=== PATIENT | female | born 1995 | race Caucasian/White ===

== ENCOUNTER → 2016-11-10 | Outpatient (REF) | payer OTHER | LOC: M SFHCPLAZ 10:29 | PROVIDERS: ATTEND Nurse Practitioner Family | DX: N30.20 Other chronic cystitis without hematuria (principal) | CPT/HCPCS: 87491; 87591; G0123 ==

== ENCOUNTER → 2018-02-14 | Outpatient (REF) | payer OTHER | LOC: M SFHCCLAY 08:10 | DX: Z12.4 Encounter for screening for malignant neoplasm of cervix (principal); Z01.419 Encounter for gynecological examination (general) (routine) without abnormal findings; R87.610 Atypical squamous cells of undetermined significance on cytologic smear of cervix (ASC-US) | CPT/HCPCS: 88142 ==

== ENCOUNTER → 2018-04-25 | Outpatient (REF) | payer OTHER | LOC: M SFHCLERA 09:05 | DX: D22.71 Melanocytic nevi of right lower limb, including hip (principal) ==

== ENCOUNTER 2018-09-13 06:44 | Day surgery (SDC) | payer OTHER ==
[~2018-09-13] VITALS: Ht 157.5 cm; Wt 26.3 kg
[~2018-09-13 06:44] MED LIST: NS 1,000 ML IV ONE
[2018-09-13] MEDS ORDERED: SIMETHICONE 40MG/0.6ML DROPS 30ML As Ordered ONE (06:54)
[2018-09-13] MEDS ORDERED: LIDOCAINE 2% INJ 100 MG/5 ML SDV (FOR ANES.) As Ordered ONE (07:01)
[2018-09-13] MEDS ORDERED: PROPOFOL 200 MG/20 ML VIAL As Ordered ONE (07:01)
[2018-09-13] MEDS ORDERED: fentaNYL 100 MCG/2 ML INJECTION (J3010) As Ordered ONE (07:42)
--- NOTE | 2018-09-13 07:58 | ROOR ---
Patient Name: Glory Cain Procedure Date: 09/13/2018 7:31 AM Date of : 1995 Age: 23 Room: [facility] Gender: Female Note Status: Finalized Procedure: Colonoscopy Indications: Rectal pain. Anal fissure-r/o crohns Providers: Ty JAIN MD Referring MD: Aranza Pérez NP Requesting Provider: Medicines: Monitored Anesthesia Care Complications: No immediate complications. Procedure: Pre-Anesthesia Assessment: - The heart rate, respiratory rate, oxygen saturations, blood pressure, adequacy of pulmonary ventilation, and response to care were monitored throughout the procedure. The Colonoscope was introduced through the anus and advanced to 8 cm into the ileum. The colonoscopy was performed without difficulty. The patient tolerated the procedure well. The quality of the bowel preparation was good. Findings: An anal fissure was found on perianal exam. The colon (entire examined portion) appeared normal. The terminal ileum appeared normal. Impression: - Anal fissure found on perianal exam (@ 4 O'Clock). - The entire examined colon is normal. - The examined portion of the ileum was normal. - No specimens collected. Recommendation: - Miralax 1 capful (17 grams) in 8 ounces of water PO BID. - Use fiber, for example Citrucel, Fibercon, Konsyl or Metamucil. - Recommend referral to Colon/Rectal surgery for further management of chronic anal fissure. Ty Jain MD Ty JAIN MD 09/13/2018 7:57:57 AM This report has been signed electronically. Number of Addenda: 0 Note Initiated On: 09/13/2018 7:31 AM Estimated Blood Loss: Estimated blood loss: none.
[2018-09-13 08:15] VITALS: BP 117/68
== END 2018-09-13 08:35 | disposition home or self-care (01) ==
LOC: M OPP 06:44
PROVIDERS: ATTEND Internal Medicine Gastroenterology
DX: K62.89 Other specified diseases of anus and rectum (principal); K60.2 Anal fissure, unspecified; Z88.1 Allergy status to other antibiotic agents; Z82.3 Family history of stroke; Z80.41 Family history of malignant neoplasm of ovary; Z80.8 Family history of malignant neoplasm of other organs or systems
CPT/HCPCS: 45378; J3010

== ENCOUNTER → 2019-03-02 | Outpatient (REF) | payer OTHER ==
[2019-03-08 14:31] LABS: HPV HYBRID CAPTURE II Negative (Negative)
== END ==
LOC: M SFHCCLAY 12:19
PROVIDERS: ATTEND Nurse Practitioner Family
DX: Z12.4 Encounter for screening for malignant neoplasm of cervix (principal)

== ENCOUNTER → 2019-04-06 | Outpatient (CLI) | payer OTHER ==
[2019-04-06 13:43] LABS: BASO # 0.1 10^3/uL (0.0-0.2); BASO % 0.8 % (0.0-1.0); EOS # 0.1 10^3/uL (0.0-0.5); EOS % 1.4 % (0.0-3.0); HEMATOCRIT 41.5 % (36.0-47.0); HEMOGLOBIN 14.4 g/dl (12.0-15.5); LYMPH # 1.7 10^3/uL (1.5-5.0); LYMPH % 22.1 % (24.0-44.0); MEAN CORPUSCULAR HEMOGLOBIN 30.6 pg (27.0-33.0); MEAN CORPUSCULAR HGB CONC 34.7 g/dl (32.0-36.5); MEAN CORPUSCULAR VOLUME 88.3 fl (80.0-96.0); MONO # 0.5 10^3/uL (0.0-0.8); NEUTROPHILS # 5.4 10^3/uL (1.5-8.5); NEUTROPHILS % 69.3 % (36.0-66.0); PLATELET COUNT, AUTOMATED 266 10^3/uL (150-450); WHITE BLOOD COUNT 7.8 10^3/uL (4.0-10.0)
[2019-04-06 15:36] LABS: CHLAMYDIA DNA AMPLIFICATION NEGATIVE (NEGATIVE); GC DNA AMPLIFICATION NEGATIVE (NEGATIVE)
[2019-04-07 11:53] LABS: HEPATITIS C VIRUS ABY INDEX 0.2 INDEX (<0.8); HIV 1&2 SCREEN CENTAUR NEGATIVE (NEGATIVE); RUBELLA IgG QUALITATIVE IMMUNE (IMMUNE)
== END ==
LOC: M SMT 08:55
PROVIDERS: ATTEND Advanced Practice Midwife
DX: Z34.01 Encounter for supervision of normal first pregnancy, first trimester (principal); Z36.89 Encounter for other specified antenatal screening; Z3A.09 9 weeks gestation of pregnancy

== ENCOUNTER → 2019-06-12 | Outpatient (CLI) | payer OTHER | LOC: M PLALAB 10:09 | PROVIDERS: ATTEND Advanced Practice Midwife | DX: Z34.82 Encounter for supervision of other normal pregnancy, second trimester (principal); Z36.89 Encounter for other specified antenatal screening ==

== ENCOUNTER → 2019-06-12 | Outpatient (CLI) | payer OTHER ==
--- NOTE | 2019-06-12 10:21 | REP ---
Clinical: Anatomical evaluation. Comparison: None . Findings: Examination demonstrates a single live intrauterine in variable presentation. motion is identified by technologist. Placenta is noted posterior and grade zero without evidence for placenta previa or abruption. Amniotic fluid volume is normal. Cervix measures 4.0 cm in length and appears closed. No evidence for nuchal cord. Gestational age by LMP 19 weeks 2 days with PHYLLIS 11/04/2019 . Gestational age by current measurements 18 weeks 2 days with PHYLLIS 11/11/2019 . FHR equals 157 beats per minute. BPD 4.0 cm 18 weeks 2 days HC 14.8 cm 17 weeks 6 days AC 13.0 cm 18 weeks 4 days FL 2.7 cm 18 weeks 1 day HL 2.6 cm 18 weeks 2 days HC/AC ratio 1.14 Estimated weight 234 grams ( 14th percentile). Anatomical assessment demonstrates normal structures including cranium, cavum, cerebellum/posterior fossa, facial profile, lungs, cardiac ventricular outflow tracts, diaphragm, stomach, cord insertion/three-vessel cord, kidneys/bladder, spine, and extremities. Small right choroid plexus cyst. Limited evaluation of the facial features and four-chamber heart. Impression: 1. Single live intrauterine in variable presentation demonstrating appropriate interval growth. 2. Anatomical limitations and findings as noted above warrant reevaluation and follow-up. Electronically Signed by Jair Walker MD 06/12/2019 10:14 A
== END ==
LOC: M RAD 09:03
PROVIDERS: ATTEND Advanced Practice Midwife
DX: O99.89 Other specified diseases and conditions complicating pregnancy, childbirth and the puerperium (principal); Z3A.19 19 weeks gestation of pregnancy; O36.92X0 Maternal care for fetal problem, unspecified, second trimester, not applicable or unspecified; O32.8XX0 Maternal care for other malpresentation of fetus, not applicable or unspecified

== ENCOUNTER → 2019-07-06 | Outpatient (CLI) | payer OTHER ==
--- NOTE | 2019-07-06 12:09 | REP ---
Clinical: Anatomical evaluation. Comparison: 06/12/2019 . Findings: Examination demonstrates a single live intrauterine in breech presentation. motion is identified by technologist. Placenta is noted posterior/fundal and grade zero without evidence for placenta previa or abruption. Amniotic fluid volume is normal. Cervix measures 3.2 cm in length and appears closed. No evidence for nuchal cord. Gestational age by LMP 22 weeks 2 days with PHYLLIS 11/07/2019 . Gestational age by first ultrasound 22 weeks 5 days with PHYLLIS 11/04/2019 . FHR equals 141 beats per minute. Estimated weight 431 grams (11th percentile). Anatomical assessment demonstrates normal structures including cranium, cavum, cerebellum/posterior fossa, facial features, lungs, four-chamber heart/ventricular outflow tracts, diaphragm, stomach, cord insertion/three-vessel cord, kidneys/bladder, spine, and extremities. 2 mm right choroid plexus cyst noted. Impression: 1. Single live intrauterine in breech presentation demonstrating appropriate interval growth compared to first ultrasound. 2. Right choroid plexus cyst. 3. Remainder of the anatomical assessment is complete and normal. Electronically Signed by Jair Walker MD 07/06/2019 10:49 A
== END ==
LOC: M LRY 08:14
PROVIDERS: ATTEND Advanced Practice Midwife
DX: Z34.02 Encounter for supervision of normal first pregnancy, second trimester (principal); Z3A.22 22 weeks gestation of pregnancy

== ENCOUNTER → 2019-08-04 | Outpatient (CLI) | payer OTHER, BC ==
--- NOTE | 2019-08-04 12:55 | REP ---
OBSTETRIC SONOGRAPHY: HISTORY: Supervision of . Followup. FINDINGS: Scanning through the gravid uterus demonstrates a viable single intrauterine gestation in a cephalic lie. motion is observed, and heart rate is recorded at 150 beats per minute. A posterior grade 0 placenta is seen without evidence of previa or abruption. Amniotic fluid is subjectively normal. Closed cervical length measured transabdominally is 3.9 cm. No extrauterine abnormalities observed. There has been appropriate interval growth. The following anatomic structures are identified today and felt to be unremarkable: cranium, choroid plexus, cavum, cerebellum and posterior fossa, lungs, diaphragm, left-sided stomach, abdominal wall cord insertion, three-vessel cord, kidneys, bladder, spine, upper and lower extremities. BIOMETRY CHART: BPD 6.1 cm = 24 weeks 6 days Head circumference 23.7 cm = 25 weeks 5 days Abdominal circumference 20.9 cm = 25 weeks 3 days Femur length 4.6 cm = 25 weeks 2 days Humeral length 4.7 cm = 28 weeks 0 days Cerebellar diameter 3.0 cm = 26 weeks 2 days HC/AC ratio normal 1.14 Cephalic index normal 0.70 Estimated weight 802 grams, 1 pound 12 ounces, 7th percentile for 26 weeks 6 days. IMPRESSION: Viable single intrauterine gestation at 25 weeks 0 days by today's composite sonographic criteria. Expected gestational age estimate based on prior sonography 26 weeks 6 days. PHYLLIS by prior sonography, November 04, 2019. Electronically Signed by Gregorio Wright MD 08/04/2019 06:37 P
== END ==
LOC: M LRY 08:25
PROVIDERS: ATTEND Advanced Practice Midwife
DX: Z36.2 Encounter for other antenatal screening follow-up (principal); Z3A.25 25 weeks gestation of pregnancy

== ENCOUNTER → 2019-08-07 | Outpatient (CLI) | payer BC, OTHER ==
--- NOTE | 2019-08-08 02:10 | REP ---
Clinical: well-being Comparison: 08/04/2019 . Findings: Examination demonstrates a single live intrauterine in breech presentation. motion is identified by technologist. Placenta is noted posterior/fundal and grade zero without evidence for placenta previa or abruption. Amniotic fluid volume is normal. Cervix measures 3.0 cm in length and appears closed. No evidence for nuchal cord. Gestational age by LMP 27 weeks 2 days with PHYLLIS 11/04/2019 . Gestational age by current first US 27 weeks 2 days. FHR equals 139 beats per minute. Biophysical profile score: 8/8 Amniotic fluid index: 13.9 cm Umbilical cord ( insertion) SD ratio: 3.45 (4.10 - 4.90) Umbilical cord (mid cord) SD ratio: 2.58 (2.60 - 4.00) Umbilical cord (placental insertion) SD ratio: 3.00 (2.60 - 4.00) Impression: Single live intrauterine in breech presentation. Amniotic fluid volume is normal. Biophysical profile score is normal.
== END ==
LOC: M WHC 11:25
PROVIDERS: ATTEND Advanced Practice Midwife
DX: O36.5920 Maternal care for other known or suspected poor fetal growth, second trimester, not applicable or unspecified (principal); Z3A.27 27 weeks gestation of pregnancy; O32.1XX0 Maternal care for breech presentation, not applicable or unspecified

== ENCOUNTER → 2019-08-14 | Outpatient (CLI) | payer BC ==
--- NOTE | 2019-08-16 05:41 | REP ---
Clinical: well-being Comparison: 08/07/2019 . Findings: Examination demonstrates a single live intrauterine . motion is identified by technologist. Placenta is noted posterior and grade I without evidence for placenta previa or abruption. Amniotic fluid volume is normal. Cervix measures 4.7 cm in length and appears closed. No evidence for nuchal cord. Gestational age by first US 28 weeks 3 days with PHYLLIS 11/04/2019 . FHR equals 134 beats per minute. Biophysical profile score: 8/8 Amniotic fluid index: 11.7 cm Umbilical cord SD ratio: 2.69 (2.56 - 3.78). Impression: Biophysical profile score and amniotic fluid volume within normal limits.
== END ==
LOC: M WHC 15:25
PROVIDERS: ATTEND Advanced Practice Midwife
DX: O36.5920 Maternal care for other known or suspected poor fetal growth, second trimester, not applicable or unspecified (principal); Z3A.28 28 weeks gestation of pregnancy

== ENCOUNTER → 2019-08-21 | Outpatient (CLI) | payer BC ==
--- NOTE | 2019-08-21 14:24 | REP ---
Clinical: well-being Comparison: 08/14/2019 . Findings: Examination demonstrates a single live intrauterine in transverse (head to maternal left) presentation. motion is identified by technologist. Placenta is noted posterior and grade I without evidence for placenta previa or abruption. Amniotic fluid volume is normal. Cervix measures 3.1 cm in length and appears closed. No evidence for nuchal cord. Gestational age by LMP 29 weeks 2 days with PHYLLIS 11/04/2019 . Gestational age by current measurements 26 weeks 6 days. FHR equals 143 beats per minute. BPD 6.9 cm 27 weeks 5 days HC 25.2 cm 27 weeks 3 days AC 23.3 cm 27 weeks 4 days FL 5.0 cm 26 weeks 5 days HL 4.6 cm 27 weeks 2 days HC/AC ratio 1.08 Estimated weight 1058 grams ( less than 3rd percentile). Biophysical profile score: 8/8 Amniotic fluid index: 13.4 cm (9.1 - 23.2) Umbilical cord ( insertion) SD ratio: 2.76 (3.3 - 4.7) Umbilical cord (placenta insertion) SD ratio: 2.90 (2.5 - 3.5) Umbilical cord (mid cord) SD ratio: 2.44 (2.50 - 3.50) Impression: Single live intrauterine in transverse lie. Biophysical profile score and amniotic fluid volume are normal. Less than expected interval growth noted.
== END ==
LOC: M WHC 08:26
PROVIDERS: ATTEND Advanced Practice Midwife
DX: O36.5920 Maternal care for other known or suspected poor fetal growth, second trimester, not applicable or unspecified (principal); Z3A.00 Weeks of gestation of pregnancy not specified

== ENCOUNTER → 2019-08-28 | Outpatient (CLI) | payer BC ==
--- NOTE | 2019-08-28 09:15 | REP ---
Clinical: well-being Comparison: 08/21/2019 . Findings: Examination demonstrates a single live intrauterine in transverse (head to maternal left) presentation. motion is identified by technologist. Placenta is noted posterior and grade I without evidence for placenta previa or abruption. Amniotic fluid volume is normal. Gestational age by LMP 30 weeks 2 days with PHYLLIS 11/04/2019 . FHR equals 135 beats per minute. Biophysical profile score: 8/8 Amniotic fluid index: 10.0 cm Umbilical cord SD ratio ( insertion): 2.72 (3.3 - 4.7) Umbilical cord SD ratio (placenta insertion): 2.78 (2.50 - 3.50) Umbilical cord SD ratio (mid cord): 3.10 (2.50 - 3.50) Impression: 1. Single live advanced gestation in transverse lie. 2. Biophysical profile score and amniotic fluid volume are normal. 3. Cord Doppler SD ratio measurements as above.
[2019-08-28 11:59] LABS: HEMATOCRIT 43.2 % (36.0-47.0); HEMOGLOBIN 14.7 g/dl (12.0-15.5); MEAN CORPUSCULAR HEMOGLOBIN 30.8 pg (27.0-33.0); MEAN CORPUSCULAR VOLUME 90.6 fl (80.0-96.0); PLATELET COUNT, AUTOMATED 246 10^3/uL (150-450); RED BLOOD COUNT 4.77 10^6/uL (4.00-5.40); WHITE BLOOD COUNT 10.6 10^3/uL (4.0-10.0)
== END ==
LOC: M WHC 08:08
PROVIDERS: ATTEND Advanced Practice Midwife
DX: O36.5920 Maternal care for other known or suspected poor fetal growth, second trimester, not applicable or unspecified (principal); O32.2XX0 Maternal care for transverse and oblique lie, not applicable or unspecified; Z3A.30 30 weeks gestation of pregnancy

== ENCOUNTER → 2019-09-05 | Outpatient (CLI) | payer BC ==
[~2019-09-05] MED LIST changes: -NS 1,000 ML IV ONE; +OMEP10CA78 PO; +STUACAP PO
--- NOTE | 2019-09-05 14:39 | REP ---
OB ULTRASOUND AND BIOPHYSICAL PROFILE: Real-time sonographic evaluation of gravid uterus performed. There is a single living intrauterine gestation. Estimated gestational age is reportedly 31 weeks 3 days, EDC 11/04/2019. Cervix is closed and measures 3.2 cm in length. heart rate 134 beats per minute. Biophysical profile score 8/8. S/D ratio of the umbilical artery at the insertion 2.63, below normal range of 3.3 to 4.7, resistive index 0.62 below normal range of 0.63 to 0.79. At the placental insertion S/D ratio 2.58 within normal range of 2.5 to 3.5, RI 0.61 within normal range of 0.59 to 0.75. In the mid cord, S/D ratio 2.27 below normal range of 2.5 to 3.5 and RI 0.56 below normal range of 0.59 to 0.75. position vertex. Amniotic fluid subjectively within normal limits. Placenta posterior and grade 1 with no previa or abruption.
== END ==
LOC: M WHC 08:06
PROVIDERS: ATTEND Advanced Practice Midwife
DX: O36.5920 Maternal care for other known or suspected poor fetal growth, second trimester, not applicable or unspecified (principal); Z3A.31 31 weeks gestation of pregnancy

== ENCOUNTER → 2019-09-08 | Outpatient (CLI) | payer BC ==
--- NOTE | 2019-09-11 07:59 | REP ---
Obstetric ultrasound for biophysical profile: Gestational age based on the first ultrasound is 31 weeks 6 days/PHYLLIS 11/04/2019. Gestational age based on LMP is 31 weeks 6 days. There is a single intrauterine gestation in a vertex presentation. The heart rate is 130 beats per minute. Cervix measures 3.1 cm. The placenta is posterior. There is no placenta previa or abruptio. The placenta is grade 1. Biophysical profile: Breathing 2.0 Movement 2.0 Tone 2.0 AFV 2.0 Total 8.0 / 8.0 Umbilical artery Doppler: S/D ratio 2.98 (2.30-3.30) Resistive Index 0.66 (0.59-0.75 Diastolic Velocity 16.4 (>10 cm/sec) Electronically Signed by Vince Gonzalez MD 09/08/2019 02:25 P
== END ==
LOC: M WHC 11:24
PROVIDERS: ATTEND Advanced Practice Midwife
DX: O36.5920 Maternal care for other known or suspected poor fetal growth, second trimester, not applicable or unspecified (principal); Z3A.31 31 weeks gestation of pregnancy

== ENCOUNTER 2019-09-10 14:31 | Outpatient (CLI) | payer BC ==
[~2019-09-10] VITALS: Ht 157.5 cm; Wt 81.6 kg
[2019-09-10 14:53] VITALS: BP 145/85
[2019-09-10] MEDS ORDERED: OMEP10CA78 PO (14:59)
[2019-09-10] MEDS ORDERED: STUACAP PO (14:59)
--- NOTE | 2019-09-11 14:15 | IPN ---
DATE: 09/10/2019 24-year-old, (G) 1 at 31 and 2/7 weeks gestation who presents for decreased movement for one day. She lives in [place], but happened to be in [place] when she called. Movements have been minimal. The is complicated by intrauterine growth restriction by ultrasound. OBJECTIVE: Blood pressure 134/79. Pulse 84. She is in no apparent distress. Head and Neck Exam: Normal. Lungs: Clear. Abdomen: Nontender. Gravid. heart tones Category 1. Contractions none. Bedside abdominal ultrasound with numerous movements observed. Normal LESLEY. Biophysical Profile: 04/20. ASSESSMENT: 24-year-old, G1, at 31 and 2, with decreased movement, but reassuring testing. PLAN: The patient has a biophysical profile scheduled for 09/11/2019. The patient will followup in the office as scheduled.
== END 2019-09-10 15:50 | disposition home or self-care (01) ==
LOC: M LDO 14:31
PROVIDERS: ATTEND Specialist
DX: O36.8130 Decreased fetal movements, third trimester, not applicable or unspecified (principal); Z3A.31 31 weeks gestation of pregnancy; O36.5930 Maternal care for other known or suspected poor fetal growth, third trimester, not applicable or unspecified; Z88.1 Allergy status to other antibiotic agents; Z79.899 Other long term (current) drug therapy
CPT/HCPCS: 59025; 76815; G0378; G0463

== ENCOUNTER → 2019-09-12 | Outpatient (CLI) | payer BC ==
--- NOTE | 2019-09-12 19:29 | REP ---
Obstetric sonography: History: Intrauterine growth restriction. growth study. Findings: Scanning through the gravid uterus demonstrates a viable single intrauterine gestation in a cephalic lie. motion is observed and heart rate is recorded at 156 beats per minute. A posterior grade 1 placenta is seen without evidence of previa or abruption. Amniotic fluid is subjectively normal. Closed cervical length is 3.1 cm measured transabdominally. No extrauterine abnormalities observed. There has been less than expected interval growth. Biometry chart: BPD 7.6 cm = 30 weeks 3 days HC 28.1 cm = 30 weeks 6 days AC 25.7 cm = 29 weeks 6 days FL 5.8 cm = 30 weeks 2 days HC/AC ratio normal 1.09. Cephalic index normal 0.75. Estimated weight 1521 grams, 3 pounds 5 ounces, less than 3rd percentile for 32 weeks 3 days. LESLEY normal 11.9 cm. Biophysical profile score 8 out of a possible 8. S/D ratio in the umbilical cord artery by Doppler normal 2.76. Impression: Viable single intrauterine gestation at 30 weeks 0 days by today's composite sonographic criteria. Expected gestational age estimate based on prior sonography 32 weeks 3 days. PHYLLIS by prior sonography November 04, 2019. Estimated weight less than 3rd percentile. Somewhat less than expected interval growth.
== END ==
LOC: M WHC 15:36
PROVIDERS: ATTEND Advanced Practice Midwife
DX: O36.5930 Maternal care for other known or suspected poor fetal growth, third trimester, not applicable or unspecified (principal); Z3A.30 30 weeks gestation of pregnancy

== ENCOUNTER → 2019-09-15 | Outpatient (CLI) | payer BC ==
--- NOTE | 2019-09-15 17:57 | REP ---
OB ULTRASOUND, BIOPHYSICAL PROFILE: Real-time sonographic evaluation of the gravid uterus performed. There is a single living intrauterine gestation. The estimated gestational age is 32 weeks 6 days, EDC 11/04/2019. Cervix is closed and measures 3.1 cm in length. heart rate 132 beats per minute. Amniotic fluid within normal limits, LESLEY 10.3, within normal range of 8.3 to 24.5. Biophysical profile score 8/8. S/D ratio on the umbilical artery ranges between 2.4 to 2.5, within normal range. position vertex. Placenta posterior and grade 1 with no previa or abruption.
== END ==
LOC: M WHC 14:33
PROVIDERS: ATTEND Advanced Practice Midwife
DX: O36.5930 Maternal care for other known or suspected poor fetal growth, third trimester, not applicable or unspecified (principal); Z3A.32 32 weeks gestation of pregnancy

== ENCOUNTER → 2019-09-18 | Outpatient (CLI) | payer BC ==
--- NOTE | 2019-09-18 14:52 | REP ---
OBSTETRIC SONOGRAPHY: HISTORY: Limited study third trimester biophysical profile and cord Dopplers. Intrauterine growth restriction. FINDINGS: Scanning demonstrates a living intrauterine gestation in a cephalic lie. A posterior grade 1 placenta is seen without evidence of previa or abruption. Amniotic fluid is subjectively normal. LESLEY is normal at 11.8 cm. Closed cervical length is 3.4 cm viewed transabdominally. heart rate is recorded at 142 beats per minute. Biophysical profile score is 8 out of a possible 8. S/D ratio in the umbilical cord artery by Doppler is normal at 2.25.
== END ==
LOC: M WHC 08:33
PROVIDERS: ATTEND Advanced Practice Midwife
DX: O36.5920 Maternal care for other known or suspected poor fetal growth, second trimester, not applicable or unspecified (principal)

== ENCOUNTER → 2019-09-25 | Outpatient (CLI) | payer BC ==
--- NOTE | 2019-09-25 11:40 | REP ---
OBSTETRIC SONOGRAPHY: HISTORY: Intrauterine growth restriction. Second trimester study. Single gestation. FINDINGS: Transabdominal scanning demonstrates a single living intrauterine gestation in a cephalic lie. motion is observed, and heart rate is recorded at 150 beats per minute. A posterior grade 2 placenta is seen without evidence of previa. Amniotic fluid is subjectively normal. Closed cervical length measures 3.0 cm. There has been less than expected interval growth. The following anatomic structures are identified today and felt to be unremarkable: cranium, four-chamber heart, diaphragm, left-sided stomach, three-vessel cord, kidneys and bladder. BIOMETRY CHART: BPD 7.6 cm = 30 weeks 4 days Head circumference 29.9 cm = 33 weeks 1 day Abdominal circumference 26.0 cm = 30 weeks 1 day Femur length 5.8 cm = 30 weeks 3 days Humeral length 5.3 cm = 30 weeks 6 days HC/AC ratio 1.15 (0.95-1.13). Cephalic index normal 0.69. Estimated weight 1625 grams, 3 pounds 9 ounces, less than 3rd percentile for 33 weeks 3 days. LESLEY normal 11.0 cm. Biophysical profile score 8 out of a possible 8. S/D ratio in the umbilical cord artery by Doppler, normal at 2.38. IMPRESSION: Viable single intrauterine gestation at 31 weeks 0 days by today's composite criteria. Expected gestational age estimate based on prior sonography is 34 weeks 2 days. Established PHYLLIS, November 10, 2019. 33 weeks 3 days. Estimated weight less than 3rd percentile for 33 weeks 3 days.
== END ==
LOC: M WHC 08:01
PROVIDERS: ATTEND Advanced Practice Midwife
DX: Z36.9 Encounter for antenatal screening, unspecified (principal); Z3A.33 33 weeks gestation of pregnancy

== ENCOUNTER → 2019-09-28 | Outpatient (CLI) | payer BC ==
--- NOTE | 2019-09-28 13:36 | REP ---
OBSTETRIC SONOGRAPHY: LIMITED EXAM. HISTORY: Third trimester obstetric sonography for biophysical profile and umbilical cord Doppler. FINDINGS: Limited obstetric sonography demonstrates a single living intrauterine gestation in a cephalic lie. A posterior grade 2 placenta is seen without evidence of previa or abruption. Closed cervical length is measured transabdominally at 3.2 cm. heart rate is recorded at 152 beats per minute. Amniotic fluid is subjectively normal. LESLEY is normal at 12.4 cm. Biophysical profile score is 8 out of a possible 8. S/D ratio in the umbilical cord artery by Doppler is normal at 2.69.
== END ==
LOC: M WHC 07:58
PROVIDERS: ATTEND Advanced Practice Midwife
DX: O36.5920 Maternal care for other known or suspected poor fetal growth, second trimester, not applicable or unspecified (principal)

== ENCOUNTER → 2019-09-28 | Outpatient (REF) | payer BC ==
[2019-10-04 00:06] LABS: ANTI PARVO VIRUS LEVEL IGG 0.2 index (0.0-0.8); ANTI PARVO VIRUS LEVEL IgM 0.1 index (0.0-0.8); CYTOMEGALOVIRUS IgG ANTIBODY <0.60 U/mL (0.00-0.59); CYTOMEGALOVIRUS IgM ANTIBODY <30.0 AU/mL (0.0-29.9); HERPES HUMAN VIRUS #6 IgM HVG <1:10 (Neg:<1:10); HERPES ZOSTER, VARICELLA IgG 671 index (Immune >165); HERPES ZOSTER, VARICELLA IgM <0.91 index (0.00-0.90); RUBELLA IgG FOR TORCH EVAL 5.58 index (Immune >0.99); TOXOPLASMA IgG ABY <3.0 IU/mL (0.0-7.1)
== END ==
LOC: M PLALAB 11:41
PROVIDERS: ATTEND Obstetrics & Gynecology
DX: O36.5930 Maternal care for other known or suspected poor fetal growth, third trimester, not applicable or unspecified (principal)

== ENCOUNTER → 2019-10-02 | Outpatient (CLI) | payer BC ==
--- NOTE | 2019-10-02 15:45 | REP ---
Clinical: well-being Comparison: 10/02/2019 . Findings: Examination demonstrates a single live intrauterine in cephalic presentation. motion is identified by technologist. Placenta is noted posterior and grade I I without evidence for placenta previa or abruption. Amniotic fluid volume is normal. Cervix measures 3.4 cm length and appears closed. Gestational age by LMP 35 weeks 2 days with PHYLLIS 11/04/2019 . FHR equals 142 beats per minute. Biophysical profile score: 8/8 Umbilical cord SD ratio: 2.03 Impression: Single live intrauterine in cephalic presentation. Biophysical profile score normal. Amniotic fluid volume normal.
== END ==
LOC: M WHC 14:12
PROVIDERS: ATTEND Advanced Practice Midwife
DX: O36.5920 Maternal care for other known or suspected poor fetal growth, second trimester, not applicable or unspecified (principal)

== ENCOUNTER → 2019-10-05 | Outpatient (REF) | payer BC | LOC: M SFHCWAGY 12:44 | PROVIDERS: ATTEND Advanced Practice Midwife | DX: O36.5930 Maternal care for other known or suspected poor fetal growth, third trimester, not applicable or unspecified (principal); Z36.85 Encounter for antenatal screening for Streptococcus B ==

== ENCOUNTER → 2019-10-05 | Outpatient (CLI) | payer BC ==
--- NOTE | 2019-10-05 10:13 | REP ---
Limited obstetric sonography: History: Third trimester study intrauterine growth restriction. For biophysical profile and cord Doppler. Findings: A single intrauterine gestation is seen in a cephalic lie. Biophysical profile score is eight out of a possible eight. Amniotic fluid is subjectively normal. A posterior grade 2 placenta is seen without evidence of previa or abruption. SD ratio in the umbilical cord artery by Doppler is normal at 2.05. LESLEY is normal 13.8 cm. heart rate is recorded at 132 beats per minute. Electronically Signed by Gregorio Wright MD 10/05/2019 10:05 A
== END ==
LOC: M WHC 08:04
PROVIDERS: ATTEND Advanced Practice Midwife
DX: O36.5920 Maternal care for other known or suspected poor fetal growth, second trimester, not applicable or unspecified (principal); Z3A.00 Weeks of gestation of pregnancy not specified

== ENCOUNTER → 2019-10-09 | Outpatient (CLI) | payer BC ==
--- NOTE | 2019-10-09 11:17 | REP ---
OBSTETRIC SONOGRAPHY: HISTORY: Supervision of third trimester study growth, biophysical profile and cord Doppler. Intrauterine growth restriction. FINDINGS: Scanning through the gravid uterus demonstrates a viable single intrauterine gestation in a cephalic lie. motion is observed and heart rate is recorded at 130 beats per minute. A posterior placenta is seen grade 2 without evidence of previa or abruption. Amniotic fluid is subjectively normal. Closed cervical length is 3.2 cm. No extrauterine abnormalities observed. There has been less than expected interval growth. BIOMETRY CHART: BPD 8.1 cm = 32 weeks 3 days Head circumference 30.3 cm = 33 weeks 4 days Abdominal circumference 29.2 cm = 33 weeks 2 days Femur length 6.4 cm = 33 weeks 1 day Humeral length 5.5 cm = 32 weeks 1 day HC/AC ratio normal 1.03. Cephalic index normal 0.74. Estimated weight 2132 grams, 4 pounds 11 ounces, 11th percentile for 35 weeks 3 days. LESLEY normal 13.6 cm. Biophysical profile score 8 out of a possible 8. S/D in the umbilical cord artery by Doppler normal at 2.55. IMPRESSION: Viable single intrauterine gestation at 32 weeks 6 days by today's composite criteria. Expected gestational age estimate 35 weeks 3 days. PHYLLIS by established due date November 10, 2019. Estimated weight 11th percentile.
== END ==
LOC: M WHC 07:38
PROVIDERS: ATTEND Advanced Practice Midwife
DX: O36.5920 Maternal care for other known or suspected poor fetal growth, second trimester, not applicable or unspecified (principal); Z3A.32 32 weeks gestation of pregnancy

== ENCOUNTER → 2019-10-12 | Outpatient (CLI) | payer BC ==
--- NOTE | 2019-10-12 09:51 | REP ---
OB ULTRASOUND, BIOPHYSICAL PROFILE: Real-time sonographic evaluation of the gravid uterus is performed. There is a single living intrauterine gestation, estimated gestational age is reportedly 36 weeks 5 days, EDC 11/04/2019. Cervix is closed and measures 3.3 cm in length. heart rate 132 beats per minute. Amniotic fluid within normal limits, LESLEY 14.4, normal range 7.6 to 24.5. Biophysical profile 02/16. S/D ratio 2.47 within normal range of 1.71-2.71. RI 0.59, normal range 0.59-0.75. position vertex. Placenta posterior and grade 2 with no previa or abruption.
== END ==
LOC: M WHC 08:07
PROVIDERS: ATTEND Advanced Practice Midwife
DX: O36.5920 Maternal care for other known or suspected poor fetal growth, second trimester, not applicable or unspecified (principal); Z3A.36 36 weeks gestation of pregnancy

== ENCOUNTER → 2019-10-16 | Outpatient (CLI) | payer BC ==
--- NOTE | 2019-10-16 10:29 | REP ---
OBSTETRIC SONOGRAPHY: Limited study. HISTORY: Supervision of for biophysical profile and umbilical cord Doppler. Intrauterine growth restriction. FINDINGS: Limited obstetric sonography demonstrates a single intrauterine gestation in a cephalic lie. A posterior placenta is seen grade 2 without evidence of previa. Amniotic fluid is subjectively normal. Amniotic fluid index is normal at 14.2 cm. heart rate is recorded at 140 beats per minute. Closed cervical length is 3.0 cm viewed transabdominally. Biophysical profile score is 8 out of a possible 8. SD ratio in the umbilical cord artery by Doppler is normal at 2.29.
== END ==
LOC: M WHC 08:06
PROVIDERS: ATTEND Advanced Practice Midwife
DX: O36.5920 Maternal care for other known or suspected poor fetal growth, second trimester, not applicable or unspecified (principal); Z3A.00 Weeks of gestation of pregnancy not specified

== ENCOUNTER 2019-10-20 19:41 | Inpatient (IN) | payer BC ==
[~2019-10-20] VITALS: Ht 157.5 cm; Wt 86.0 kg
[2019-10-20] MEDS ORDERED: PENICILLIN G POTASSIUM IV 5 MU in D5W MINI-BAG PLUS 100 ML IV STA (19:56)
[2019-10-20] MEDS ORDERED: LACTATED RINGER'S 1000 ML IV STA (19:56)
[2019-10-20 19:59] VITALS: BP 141/87
--- NOTE | 2019-10-20 20:08 | HPEPDOC ---
Obstetrical History & Physical General Date of Admission Oct 20, 2019 at 19:41 Primary Care Physician: KEITH FLORENTINO CNM History of Present Illness Patient is a 24-year-old female who is a at 37 weeks gestation with an PHYLLIS of 11/10/19 based off of her 1st trimester ultrasound. She initiated care in her first trimester of . Her has been complicated by IUGR. She has been doing twice weekly BPPs with cord dopplers, weekly visits with NSTs, ang growth ultrasounds every 2 weeks per recommendation of the center. Dr. Gilbert recommended induction of labor at 37 weeks gestation. She presents to L&d for induction today. She denies leaking of fluid, vaginal bleeding, or contractions. She reports active movement. 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: Abnormal Pap Past Medical History Medical History History of kidney infection Surgical History: Breast augmentation, Other (tibia fibula repair) Family History Significant Family History: Cancer (ovarian cancer, skin, pancreatic), Other (stroke) Social History 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 [employer] Marital Status: Family situation: Spouse/partner home Psychosocial History: Anxiety * Smoker: non-smoker Alcohol: Denies Drugs: denies Abuse Violence Screening Have you been hit/kicked/slapp: No Have you been sexually assault: No Allergies Coded Allergies: No Known Drug Allergies (Verified Allergy, Unknown, 10/20/19) ciprofloxacin (Verified Adverse Reaction, Intermediate, PASSED OUT, 10/20/19) Medications Scheduled Omeprazole (Omeprazole) 10 Mg Capsule.dr, 1 CAP PO DAILY Miscellaneous Medications Pnv No.63/Iron,Carb/Folic/Dha (Oc One Capsule) 1 Each Capsule, 1 CAP PO Physical Examination Physical Examination GENERAL: Alert and oriented times three. BREAST: . ABDOMEN: Gravid and non-tender to touch. FETUS: Is vertex (VTX) by sterile vaginal examination (SVE), fetus is vertex (VTX) by Max. HEART RATE: Regular rate and rhythm. LUNGS: Clear to auscultation (CTA). EXTREMITIES: No edema. No clonus. Deep tendon reflexes (DTRs) + 2. Laboratory Data [facility]H [facility] Laboratory Tests 2 10/20/19 19:53: Serology Scanned Report Hepatitis B Testing Urine Culture: No Growth Pertinent Laboratoy Data Blood Type: O+ RBC Antibody Screen: Negative HIV: Negative Hepatitis B: Negative Hepatitis C: Negative Rapid Plasma Reagin: Nonreactive Rubella: Immune Chlamydia/Gonorrhea: Negative Group B Streptococcus: Positive Glucose Tolerance Test: 123 Diag/Inter Therapy NIPT low risk with normal female Anatomy Ultrasound Ultrasound Date: Oct 09, 2019 Placenta Location: Posterior Normal Anatomy: Yes Placenta Previa: No Estimated Weight (grams): 2132 Other Ultrasounds Muitple ultrasounds showing weight <3%-11% 07/18/19: 7% 08/21/19: 1058 grams-<3% 09/06/19: 7% 09/12/19: 15% 09/25/19: 1625 grams-<3% 10/09/19: 2132 grams-11% Vaginal Examination Dilation: Fingertip Effacement: other (75%) Station: -2 Cervical Consistency: Soft Cervical Position: Middle Presentation: Cephalic presentation Position: Four quadrants Assessment Heart Rate (FHR): 130 Variability: Moderate Accelerations: Positive Decelerations: None Tocometer Contractions: Yes Frequency: irregular Multi-drug resistant Organism: No history of MDRO Assessment/Plan Assessment IUP at 37 weeks gestation GBS positive Intrauterine growth restriction Category I FHR tracing Plan Admit to L&D. Patient scheduled for IOL by Dr. Gilbert for IUGR. OOB ad devin. Diet: regular until IV Pitocin is started or until patient desires epidural. Group B Streptococcus (GBS) positive. Will start antibiotic treatment per order. Labs and intravenous (IV) per unit protocol. Counseled on Cytotec, wong bulb, and Pitocin for induction of labor. Anesthesia consult per patient's request. Neonatology consult if needed. Dr. Richter made aware of patient being in department. Lactated Ringers (LR): Bolus 800 mL prior to epidural then at 125 mL/hr. Anticipate cervical ripening and cervical change. C-S as appropriate. KEITH FLORENTINO CNM Oct 20, 2019 20:08
[2019-10-20 20:20] VITALS: BP 138/86
[2019-10-20 20:48] LABS: HEMATOCRIT 42.4 % (36.0-47.0); HEMOGLOBIN 14.9 g/dl (12.0-15.5); MEAN CORPUSCULAR HEMOGLOBIN 31.2 pg (27.0-33.0); MEAN CORPUSCULAR HGB CONC 35.1 g/dl (32.0-36.5); MEAN CORPUSCULAR VOLUME 88.9 fl (80.0-96.0); PLATELET COUNT, AUTOMATED 239 10^3/uL (150-450); RED BLOOD COUNT 4.77 10^6/uL (4.00-5.40); WHITE BLOOD COUNT 11.3 10^3/uL (4.0-10.0)
[2019-10-20] MEDS: miSOPROStol 50 MCG 1/2 TAB (S0191) PO SCH (20:53)
[2019-10-20] MEDS ORDERED: hydrOXYzine 50 MG TAB PO SCH (21:00)
[2019-10-20 21:16] LABS: ALT/SGPT 17 U/L (12-78); BILIRUBIN,TOTAL 0.2 MG/DL (0.2-1.0); CREATININE FOR GFR 0.55 MG/DL (0.55-1.30); GLOMERULAR FILTRATION RATE > 60.0 (>60); LDH LACTATE DEHYDROGENASE 185 U/L (84-246); URIC ACID 4.7 MG/DL (2.6-6.0)
[2019-10-20 21:57] VITALS: BP 119/65
[2019-10-20 23:07] VITALS: BP 130/59
[2019-10-21] VITALS (30 sets, daily range): BP systolic 105–181; BP diastolic 56–90
[2019-10-21] MEDS ORDERED: PENICILLIN G POTASSIUM IV 2.5 MU in IV 1 EA IV SCH ×2
[2019-10-21] MEDS: miSOPROStol 50 MCG 1/2 TAB (S0191) PO SCH ×2 (00:47→04:55)
--- NOTE | 2019-10-21 10:29 | IPNPDOC ---
Obstetrical Progress Note Date of Service Oct 21, 2019 Subjective Patient reports she is comfortable. She is experiencing some cramping. Objective Vital Signs Date Time Temp Pulse Resp B/P (MAP) Pulse Ox O2 Delivery O2 Flow Rate FiO2 10/21/19 09:44 86 108/72 (84) 10/21/19 07:11 97.9 18 Assessment Heart Rate (FHR): 140 Variability: Moderate Accelerations: Positive Decelerations: None Heart Rate Tracing: Category I Tocometer Contractions: Yes Frequency: regular Sterile Vaginal Examination Dilation: 1cm Effacement (%): other (75%) Station: -2 Cervical Consistency: Soft Cervical Position: Middle Postion/Presentation: Cephalic presentation Assessment and Plan Age: 24 : 1 Term: 0 Pre-term: 0 Abortions: 0 Livin EGA at Admission: 37 Weeks & Days 37.1 today Status: Reassuring Group B Streptococcus: Positive Anticipate: Vaginal Delivery Additional Comments Mayen bulb inserted with 60/40 of normal saline. IV Pitocin started per order. PCN to be started per order. KEITH FLORENTINO CNM Oct 21, 2019 10:29
[2019-10-21] MEDS ORDERED: OXYTOCIN DRIP 30 UNITS in IV 1 EA IV SCH (10:30)
[2019-10-21] MEDS: LR 1,000 ML IV SCH (11:25)
[2019-10-21] MEDS ORDERED: PENICILLIN G POTASSIUM IV 5 MU in D5W MINI-BAG PLUS 100 ML IV STA (13:27)
[2019-10-21] MEDS: PENICILLIN G POTASSIUM IV 2.5 MU in IV 1 EA IV SCH ×2 (17:29→21:18)
[2019-10-21] MEDS ORDERED: MORPHINE 4 MG/ML 1ML VIAL/SYRINGE (J2270) IV ONE (18:00)
--- NOTE | 2019-10-21 18:20 | IPNPDOC ---
Obstetrical Progress Note Date of Service Oct 21, 2019 Subjective Patient reports she feels some cramping. Objective Vital Signs Date Time Temp Pulse Resp B/P (MAP) Pulse Ox O2 Delivery O2 Flow Rate FiO2 10/21/19 17:51 66 18 138/90 (106) 10/21/19 07:11 97.9 Assessment Heart Rate (FHR): 130 Variability: Moderate Accelerations: Positive Decelerations: None Heart Rate Tracing: Category I Tocometer Contractions: Yes Frequency: regular Strength: palpated as mild Sterile Vaginal Examination Dilation: 1cm Effacement (%): 80% Station: -2 Cervical Consistency: Soft Cervical Position: Anterior Postion/Presentation: Cephalic presentation Assessment and Plan Age: 24 : 1 Term: 0 Pre-term: 0 Abortions: 0 Livin EGA at Admission: 37 Weeks & Days 37.1 Status: Reassuring Group B Streptococcus: Positive Anticipate: Vaginal Delivery Additional Comments Mayen bulb that was placed initially was not in place. A new one was placed after patient's consent. She was given IV pain medication to help relax due to anxiety. Patient tolerated placement well. Will continue with IV antibiotics. KEITH FLORNETINO CNM Oct 21, 2019 18:20
[2019-10-21] MEDS ORDERED: PROMETHAZINE INJ 25 MG/ML VIAL (J2550) IV ONE (18:45)
[2019-10-21] MEDS ORDERED: BUTORPHANOL 2 MG/ML INJ (J0595) IV ONE (18:45)
[2019-10-22] VITALS (38 sets, daily range): BP systolic 118–180; BP diastolic 56–107
[2019-10-22] MEDS: PENICILLIN G POTASSIUM IV 2.5 MU in IV 1 EA IV SCH ×6 (02:05→22:30)
--- NOTE | 2019-10-22 02:42 | IPNPDOC ---
Obstetrical Progress Note Date of Service Oct 22, 2019 Subjective Patient had IV pain medication and has just woken up. She is attempting to eat broth. Reports cramping. Objective Vital Signs Date Time Temp Pulse Resp B/P (MAP) Pulse Ox O2 Delivery O2 Flow Rate FiO2 10/21/19 21:31 90 135/87 (103) 10/21/19 20:01 98.1 10/21/19 19:31 18 Assessment Heart Rate (FHR): 140 Variability: Moderate Accelerations: Positive Decelerations: Variable, Other (occasional variables with mostly a category I FHR tracing. ) Tocometer Contractions: Yes Frequency: regular, other (2-3 minutes) Sterile Vaginal Examination Dilation: 3 cm Effacement (%): 90% Assessment and Plan EGA at Admission: 37.2 Status: Reassuring Group B Streptococcus: Positive Additional Comments Wong bulb still in place and cervix is 3 cm around wong. IV Pitocin is at 12 mu/min. Anticipate wong bulb to fall out soon. KEITH FLORENTINO CNM Oct 22, 2019 02:42
[2019-10-22 06:21] LABS: HEMATOCRIT 39.2 % (36.0-47.0); HEMOGLOBIN 13.5 g/dl (12.0-15.5); MEAN CORPUSCULAR HEMOGLOBIN 31.1 pg (27.0-33.0); MEAN CORPUSCULAR HGB CONC 34.4 g/dl (32.0-36.5); MEAN CORPUSCULAR VOLUME 90.3 fl (80.0-96.0); PLATELET COUNT, AUTOMATED 204 10^3/uL (150-450); RED BLOOD COUNT 4.34 10^6/uL (4.00-5.40); WHITE BLOOD COUNT 14.4 10^3/uL (4.0-10.0)
[2019-10-22 06:40] LABS: TOTAL PROTEIN,RANDOM URINE 15.6 MG/DL (0.0-12.0)
[2019-10-22 06:46] LABS: ALT/SGPT 12 U/L (12-78); BILIRUBIN,TOTAL 0.4 MG/DL (0.2-1.0); CREATININE FOR GFR 0.57 MG/DL (0.55-1.30); GLOMERULAR FILTRATION RATE > 60.0 (>60); LDH LACTATE DEHYDROGENASE 172 U/L (84-246); URIC ACID 4.8 MG/DL (2.6-6.0)
[2019-10-22] MEDS ORDERED: PROMETHAZINE INJ 25 MG/ML VIAL (J2550) IV ONE (12:30)
[2019-10-22] MEDS ORDERED: BUTORPHANOL 2 MG/ML INJ (J0595) IV ONE (12:30)
[2019-10-22] MEDS: LR 1,000 ML IV SCH ×2 (13:57→21:36)
--- NOTE | 2019-10-22 14:22 | IPNPDOC ---
Obstetrical Progress Note Date of Service Oct 22, 2019 Subjective Patient comfortable with IV pain medication. She does report contractions to be painful when they are occurring. at bedside and supportive. Patient considering epidural. Objective Vital Signs Date Time Temp Pulse Resp B/P (MAP) Pulse Ox O2 Delivery O2 Flow Rate FiO2 10/22/19 12:31 20 10/22/19 06:54 80 128/83 (98) 10/22/19 04:02 98.1 Assessment Heart Rate (FHR): 130 Variability: Minimal Decelerations: Early Heart Rate Tracing: Category II (patien serena stadol and phenergan recently causing minimal variability. ) Tocometer Contractions: Yes Frequency: regular, other (2-4 minutes) Sterile Vaginal Examination Dilation: 4 cm Effacement (%): 90% Station: -2 Cervical Consistency: Medium Cervical Position: Middle Postion/Presentation: Cephalic presentation Assessment and Plan Age: 1 : 0 Term: 0 Pre-term: 0 Abortions: 0 Livin EGA at Admission: 37 Weeks & Days 37.2 Status: Reassuring Group B Streptococcus: Positive Anticipate: Vaginal Delivery Additional Comments IV Pitocin is at 16 mu/min. Continue with IV Pitocin. Will examine again in 5-6 hours for change. KEITH FLORENTINO CNM Oct 22, 2019 14:21
[2019-10-22] MEDS ORDERED: FENTANYL 2MCG/ML ROPIVACAINE 0.2% IN 0.9% NACL 100ML IVBAG As Ordered ONE ×2 (15:08→23:21)
[2019-10-22] MEDS ORDERED: ePHEDrine SULFATE 25 MG/5 ML(5MG/ML) SYRINGE IV PRN (15:30)
[2019-10-22] MEDS ORDERED: REFRIGERATOR IV KEYS XX PRN (15:30)
[2019-10-22] MEDS ORDERED: diphenhydrAMINE 50MG/ML VIAL (J1200) IV PRN (15:30)
[2019-10-22] MEDS ORDERED: LACTATED RINGER'S 1000 ML IV PRN (15:30)
[2019-10-22] MEDS ORDERED: ONDANSETRON 4MG/2ML VIAL (J2405) IV PRN (15:30)
[2019-10-22] MEDS ORDERED: EPIDURAL/PCA KEYS XX PRN (15:30)
[2019-10-22] MEDS ORDERED: EPIDURAL COMMENT XX SCH (15:30)
[2019-10-22] MEDS: FENTANYL/ROPIVACAINE/NACL BAG 100 ML EPIDURAL SCH ×2 (15:30→23:26)
[2019-10-22] MEDS ORDERED: NALOXONE INJ 0.4 MG/1 ML VIAL (J2310) IV PRN (15:30)
--- NOTE | 2019-10-22 19:28 | IPNPDOC ---
Obstetrical Progress Note Date of Service Oct 22, 2019 Subjective Patient reports she is comfortable with her epidural and is feeling slight rectal pressure. Objective Vital Signs Date Time Temp Pulse Resp B/P (MAP) Pulse Ox O2 Delivery O2 Flow Rate FiO2 10/22/19 13:56 81 147/91 (109) 10/22/19 13:51 98.1 20 Assessment Heart Rate (FHR): 130 Variability: Moderate Accelerations: Positive Decelerations: Early Heart Rate Tracing: Category I Tocometer Contractions: Yes Frequency: regular, other (2-4 minutes) Strength: palpated as moderate Sterile Vaginal Examination Dilation: 5 cm (5-6 cm) Station: -1 Cervical Consistency: Soft Cervical Position: Anterior Postion/Presentation: Cephalic presentation Assessment and Plan Age: 24 : 1 Term: 0 Pre-term: 0 Abortions: 0 Livin EGA at Admission: 37 Weeks & Days 37.2 Status: Reassuring Group B Streptococcus: Positive Anticipate: Vaginal Delivery Additional Comments IV Pitocin is at 18 mu/min. IUPC placed. Patient tolerated well. She continues to slowly progress. KEITH FLORENTINO CNM Oct 22, 2019 19:28
[2019-10-22] MEDS ORDERED: CALCIUM CARBONATE 500 MG CHEW U/D PO ONE (21:30)
[2019-10-23] VITALS (15 sets, daily range): BP systolic 107–163; BP diastolic 58–89
[2019-10-23] MEDS ORDERED: OXYTOCIN DRIP 30 UNITS in IV 1 EA IV SCH (02:36)
--- NOTE | 2019-10-23 02:36 | DNPDOC ---
[facility] Delivery Note Delivery Note DATE OF DELIVERY: 10/23/2019 at 0208 PREDELIVERY DIAGNOSIS: 37-3/7 weeks' gestation and labor. POST DELIVERY DIAGNOSIS: Delivered. PROCEDURE: [Spontaneous vaginal delivery. CNA HHA: Keith Fox CNM, TERRELL ANESTHESIA: epidural. ESTIMATED BLOOD LOSS: 400 mL. FINDINGS: 5 pounds 14 ounces; 2670 grams; female , Score 7/8, IUGR, GHTN. DELIVERY SUMMARY: Patient is a 24-year-old female who presented to L&D for IOL for IUGR. Once admitted she was found to have GHTN. The patient received 3 doses of Cytotec, a wong bulb, and IV Pitocin for induction. She also received an epidural for pain management. The patient progressed to fully dilated at 0024 and pushed to a living female in the CARLY position with restitution to ROT. The anterior shoulder delivered with ease and the corpus immediately followed. The baby was placed on the maternal abdomen active and crying with stimulation. The cord was clamped x2 after 1 minute and cut. A 3-vessel cord was noted. The placenta delivered spontaneously and intact at 0217. Uterine hemostasis was achieved via rapid infusion of IV Pitocin and fundal massage. The perineum, vagina, and cervix were inspected and found to be intact. The mom plans to name their Lisa. She breastfed in the room after delivery. Both mom and baby are in stable condition. All counts of instruments and laps are correct. KEITH FOX CNM Oct 23, 2019 02:36
[2019-10-23] MEDS ORDERED: DOCUSATE SODIUM 100 MG CAP PO PRN (02:45)
[2019-10-23] MEDS ORDERED: ACETAMINOPHEN TAB 650MG DOSE (2X325MG) PO PRN (02:45)
[2019-10-23] MEDS ORDERED: ACETAMINOPHEN 500 MG TAB PO PRN (02:45)
[2019-10-23] MEDS ORDERED: MEASLES,MUMPS,RUBELLA VACCINE INJ (MMR-II) (90707) SC SCH (02:45)
[2019-10-23] MEDS ORDERED: ANUSOL HC CREAM 30GM TOP PRN (02:45)
[2019-10-23] MEDS ORDERED: IBUPROFEN 600 MG TAB PO PRN (02:45)
[2019-10-23] MEDS ORDERED: RHOGAM 300 MCG (1500 IU) INJ (J2790) IM SCH (02:45)
[2019-10-23] MEDS: IBUPROFEN 800 MG TAB PO PRN ×2 (02:53→14:31)
[2019-10-23] MEDS: PRENATAL VITAMINS CHEWABLE TABLET PO SCH (09:00)
[2019-10-23] MEDS: DIBUCAINE 1% OINTMENT 30GM TOP PRN (14:56)
[2019-10-24] MEDS: IBUPROFEN 800 MG TAB PO PRN ×2 (00:24→09:30)
[2019-10-24 06:34] VITALS: BP 115/65
[2019-10-24] MEDS ORDERED: ACET-683 PO (07:36)
[2019-10-24] MEDS ORDERED: IBUP80TA PO (07:36)
[2019-10-24] MEDS: PRENATAL VITAMINS CHEWABLE TABLET PO SCH (07:55)
[2019-10-24] MEDS: DIBUCAINE 1% OINTMENT 30GM TOP PRN (12:42)
== END 2019-10-24 14:40 | disposition home or self-care (01) | DRG 560 ==
LOC: M LDI 19:41 → M OBS 10-23 04:30
PROVIDERS: ADMIT Advanced Practice Midwife; ATTEND Advanced Practice Midwife
PROC: 3E033VJ Introduction of Other Hormone into Peripheral Vein, Percutaneous Approach (ICD-10-PCS; 2019-10-20)
PROC: 10E0XZZ Delivery of Products of Conception, External Approach (ICD-10-PCS; principal; 2019-10-23)
DX: O36.5930 Maternal care for other known or suspected poor fetal growth, third trimester, not applicable or unspecified (principal); Z37.0 Single live birth; Z3A.37 37 weeks gestation of pregnancy; O13.4 Gestational [pregnancy-induced] hypertension without significant proteinuria, complicating childbirth

== ENCOUNTER → 2020-03-14 | Outpatient (CLI) | payer BC ==
[~2020-03-14] MED LIST changes: +ACET-683 PO; +IBUP80TA PO
== END ==
LOC: M SFHCWAGY 15:00
PROVIDERS: ATTEND Advanced Practice Midwife
DX: Z12.4 Encounter for screening for malignant neoplasm of cervix (principal); R87.610 Atypical squamous cells of undetermined significance on cytologic smear of cervix (ASC-US)
CPT/HCPCS: 87624; G0123

== ENCOUNTER → 2021-05-08 | Outpatient (REF) | payer BC | LOC: M SFHCWAGY 18:59 | PROVIDERS: ATTEND Advanced Practice Midwife | DX: Z12.4 Encounter for screening for malignant neoplasm of cervix (principal) | CPT/HCPCS: 87624; G0123 ==

== ENCOUNTER → 2022-08-20 | Outpatient (CLI) | payer BC ==
[~2022-08-20] MED LIST changes: -OMEP10CA78 PO; +OMEP1CAP71 PO
[2022-08-20 13:35] LABS: HEMATOCRIT 41.2 % (36.0-47.0); HEMOGLOBIN 14.4 g/dl (12.0-15.5); MEAN CORPUSCULAR VOLUME 85.8 fl (80.0-96.0); PLATELET COUNT, AUTOMATED 253 10^3/uL (150-450); WHITE BLOOD COUNT 7.2 10^3/uL (4.0-10.0)
[2022-08-20 14:08] LABS: HIV 1&2 SCREEN CENTAUR NEGATIVE (NEGATIVE)
[2022-08-20 14:16] LABS: HEPATITIS C VIRUS ABY INDEX 0.1 INDEX (<0.8)
[2022-08-20 15:59] LABS: GC DNA AMPLIFICATION NEGATIVE (NEGATIVE)
== END ==
LOC: M PLALAB 09:29
PROVIDERS: ATTEND Advanced Practice Midwife
DX: Z34.81 Encounter for supervision of other normal pregnancy, first trimester (principal)

== ENCOUNTER → 2022-09-08 | Outpatient (REF) | payer BC ==
[2022-09-08 16:27] LABS: CREATININE,RANDOM URINE 68.5 MG/DL
[2022-09-08 16:29] LABS: TOTAL PROTEIN,RANDOM URINE < 6.0 MG/DL (0.0-14.0)
== END ==
LOC: M SFHCWAGY 15:20
PROVIDERS: ATTEND Obstetrics & Gynecology
DX: Z87.59 Personal history of other complications of pregnancy, childbirth and the puerperium (principal)

== ENCOUNTER → 2022-10-27 | Outpatient (CLI) | payer BC | LOC: M WHC 07:45 | PROVIDERS: ATTEND Obstetrics & Gynecology | DX: Z34.92 Encounter for supervision of normal pregnancy, unspecified, second trimester (principal); Z3A.20 20 weeks gestation of pregnancy ==

== ENCOUNTER → 2023-01-22 | Outpatient (CLI) | payer BC ==
[2023-01-22 13:56] LABS: HEMATOCRIT 38.5 % (36.0-47.0); HEMOGLOBIN 12.9 g/dl (12.0-15.5); MEAN CORPUSCULAR HEMOGLOBIN 30.2 pg (27.0-33.0); MEAN CORPUSCULAR HGB CONC 33.5 g/dl (32.0-36.5); MEAN CORPUSCULAR VOLUME 90.2 fl (80.0-96.0); PLATELET COUNT, AUTOMATED 251 10^3/uL (150-450); RED BLOOD COUNT 4.27 10^6/uL (4.00-5.40); WHITE BLOOD COUNT 10.9 10^3/uL (4.0-10.0)
[2023-01-22 14:24] LABS: TOTAL PROTEIN,RANDOM URINE 12.5 MG/DL (0.0-14.0)
[2023-01-22 14:27] LABS: CREATININE,RANDOM URINE 70.8 MG/DL
[2023-01-22 14:29] LABS: ALBUMIN 2.6 G/DL (3.2-5.2); ALKALINE PHOSPHATASE 101 U/L (46-116); ALT/SGPT < 9 U/L (7.0-40); AST/SGOT 9 U/L (<34); BILIRUBIN,TOTAL 0.3 MG/DL (0.3-1.2); BLOOD UREA NITROGEN 7 MG/DL (9-23); CALCIUM LEVEL 8.6 MG/DL (8.5-10.1); CARBON DIOXIDE LEVEL 23 MMOL/L (20-31); CHLORIDE LEVEL 106 MMOL/L (98-107); CREATININE FOR GFR 0.45 MG/DL (0.55-1.30); GLOMERULAR FILTRATION RATE > 60.0 (>60); GLUCOSE CHALLENGE TEST 1 HOUR 142 MG/DL (LESS THAN 140); GLUCOSE, FASTING 142 MG/DL (60-100); SODIUM LEVEL 136 MMOL/L (136-145); TOTAL PROTEIN 6.1 G/DL (5.7-8.2)
== END ==
LOC: M PLALAB 08:36
PROVIDERS: ATTEND Advanced Practice Midwife
DX: Z34.92 Encounter for supervision of normal pregnancy, unspecified, second trimester (principal)

== ENCOUNTER → 2023-02-18 | Outpatient (REF) | payer BC | LOC: M SFHCWAGY 15:43 | PROVIDERS: ATTEND Obstetrics & Gynecology | DX: Z36.85 Encounter for antenatal screening for Streptococcus B (principal) ==

== ENCOUNTER → 2023-02-19 | Outpatient (CLI) | payer BC | LOC: M WHC 15:04 | PROVIDERS: ATTEND Obstetrics & Gynecology | DX: Z87.59 Personal history of other complications of pregnancy, childbirth and the puerperium (principal); Z3A.37 37 weeks gestation of pregnancy ==

== ENCOUNTER → 2024-03-01 | Outpatient (REF) | payer BC ==
[~2024-03-01] MED LIST changes: +OMEP10CASR PO
== END ==
LOC: M SFHCWAGY 12:23
PROVIDERS: ATTEND Advanced Practice Midwife
DX: Z12.4 Encounter for screening for malignant neoplasm of cervix (principal); R87.610 Atypical squamous cells of undetermined significance on cytologic smear of cervix (ASC-US)
CPT/HCPCS: 87624; G0123